=== PATIENT | female | born 2000 | race Caucasian/White ===

== ENCOUNTER 2019-08-23 06:02 | Emergency (ER) | payer BC ==
[~2019-08-23] VITALS: Ht 157.5 cm; Wt 52.6 kg
[2019-08-23 06:11] VITALS: Ht 157.5 cm; Wt 52.6 kg
[2019-08-23 10:37] VITALS: BP 116/79
== END 2019-08-23 12:01 | disposition home or self-care (01) ==
LOC: ED 06:02
DX: F41.9 Anxiety disorder, unspecified (principal); R41.82 Altered mental status, unspecified
CPT/HCPCS: J1630; J2060